=== PATIENT | male | born 1945 | race African-American/Black ===

== ENCOUNTER 2019-12-30 07:10 | Inpatient (IN) | payer MEDICARE, OTHER ==
[~2019-12-30] VITALS: Ht 185.4 cm; Wt 117.4 kg
[2019-12-30] MEDS ORDERED: SODIUM CHLORIDE 0.9% 1,000 ML ONE (07:36)
[2019-12-30] MEDS ORDERED: SODIUM CHLORIDE 0.9% 1,000 ML IV ONE (07:45)
[2019-12-30 07:56] LABS: BASOPHILS % (AUTO) 0.6 % (0.0-2.0); EOSINOPHILS % (AUTO) 3.2 % (1.0-6.0); HEMATOCRIT 33.3 % (41-53); LYMPHOCYTES # (AUTO) 2.2 K/uL (1.0-4.8); MEAN CORPUSCULAR HEMOGLOBIN 28.9 pg (26.0-34.0); MEAN CORPUSCULAR HGB CONC 32.9 G/dL (31.0-37.0); MEAN CORPUSCULAR VOLUME 88 fL (80-100); MONOCYTES # (AUTO) 0.6 K/uL (0.1-1.0); MONOCYTES % (AUTO) 8.3 % (2.0-9.0); NEUTROPHILS # (AUTO) 4.5 K/uL (1.8-7.7); NEUTROPHILS % (AUTO) 58.9 % (40.0-70.0); PLATELET COUNT (AUTO) 149 K/uL (150-450); RED BLOOD CELL COUNT(AUTO) 3.79 MIL/uL (4.50-5.90); RED CELL DISTRIBUTION WIDTH 14.7 % (11.5-14.5)
[2019-12-30] MEDS ORDERED: IOHEXOL 300 MG/ML 150 ML VIAL ONE (08:09)
[2019-12-30] MEDS ORDERED: HEPARIN SODIUM,PORCINE 1,000 UNITS/ML 10 ML VIAL ONE (08:09)
[2019-12-30] MEDS ORDERED: LIDOCAINE/PF 1% 30 ML VIAL ONE (08:10)
[2019-12-30] MEDS ORDERED: VERAPAMIL HCL 2.5 MG/ML 2 ML VIAL ONE (08:10)
[2019-12-30] MEDS ORDERED: SODIUM BICARBONATE 50 MEQ/50 ML VIAL ONE (08:11)
[2019-12-30 08:13] LABS: CALCIUM, TOTAL 8.4 mg/dL (8.8-10.5); CREATININE 3.33 mg/dL (0.60-1.30); POTASSIUM 4.3 mmol/L (3.5-5.1)
[2019-12-30] MEDS ORDERED: HEPARIN SODIUM 1000 UNITS/NS 1,000 ML ONE (08:13)
[2019-12-30 08:15] LABS: INR 1.1 (0.9-1.1); PROTHROMBIN TIME 10.8 SEC (9.4-11.6)
[2019-12-30 08:21] LABS: ALBUMIN 3.5 g/dL (3.4-5.0); BILIRUBIN,TOTAL 0.2 mg/dL (0.1-1.0); TOTAL PROTEIN, SERUM 7.3 g/dL (6.4-8.2)
[2019-12-30] MEDS ORDERED: NITROGLYCERIN 50 MG/D5% WATER 250 ML ONE (09:36)
[2019-12-30] MEDS ORDERED: FentaNYL CITRATE-PF 100 MCG/2 ML VIAL ONE (09:59)
[2019-12-30] MEDS ORDERED: MIDAZOLAM HCL 2 MG/2 ML VIAL ONE (10:00)
[2019-12-30 10:05] VITALS: BP 167/62
[2019-12-30] MEDS ORDERED: ASPIRIN 325 MG TABLET ONE (10:57)
[2019-12-30] MEDS ORDERED: TICAGRELOR 90 MG TABLET ONE (10:57)
[2019-12-30] MEDS ORDERED: LABETALOL HCL 5 MG/ML 20 ML VIAL IVP ONE ×2 (11:08→11:15)
[2019-12-30] MEDS ORDERED: LIDOCAINE 1% 30 ML/SOD BICARB 8.4% 4 ML SQ ONE ×2 (11:15→11:30)
[2019-12-30] MEDS ORDERED: HEPARIN SODIUM,PORCINE 1,000 UNITS/ML 10 ML VIAL IVP ONE ×2 (11:15→12:00)
[2019-12-30] MEDS ORDERED: VERAPAMIL HCL 2.5 MG/ML 2 ML VIAL IARTER ONE (11:15)
[2019-12-30] MEDS ORDERED: NITROGLYCERIN/D5W 50 MG/250 ML IV BOTTLE IARTER ONE (11:15)
[2019-12-30] MEDS ORDERED: FentaNYL CITRATE-PF 100 MCG/2 ML VIAL IVP ONE (11:15)
[2019-12-30] MEDS ORDERED: MIDAZOLAM HCL 2 MG/2 ML VIAL IVP ONE (11:15)
[2019-12-30] MEDS ORDERED: SODIUM CHLORIDE 0.9% 500 ML IV ONE (11:20)
[2019-12-30] MEDS ORDERED: HEPARIN SODIUM 1000 UNITS/NS 1,000 ML IARTER ONE (11:20)
[2019-12-30] MEDS ORDERED: IOHEXOL 300 MG/ML 150 ML VIAL ICOR ONE (11:30)
[2019-12-30] MEDS ORDERED: BUMETANIDE 0.25 MG/ML 4 ML VIAL ONE (11:34)
[2019-12-30] MEDS ORDERED: BUMETANIDE 0.25 MG/ML 4 ML VIAL IVP ONE (11:45)
[2019-12-30] MEDS ORDERED: TICAGRELOR 90 MG TABLET PO ONE (11:45)
[2019-12-30] MEDS ORDERED: ASPIRIN 325 MG TABLET PO ONE (11:45)
[2019-12-30 11:55] VITALS: BP 184/64
[2019-12-30] MEDS ORDERED: CHOLECALCIFEROL (VIT D3) 5,000 [125 MCG] UNITS CAPSULE PO ONE (12:00)
[2019-12-30] MEDS ORDERED: DEXTROSE 50%-WATER 25 GM/50 ML SYRINGE IVP PRN (12:00)
[2019-12-30] MEDS ORDERED: MetFORMIN HCL 500 MG TABLET PO SCH (17:30)
[2019-12-30 17:47] VITALS: BP 150/68
[2019-12-30 18:13] LABS: GLUCOMETER DEV NAME(LOC) 5S.1; GLUCOSE,POINT OF CARE 195 MG/DL (70-110)
[2019-12-30] MEDS: INSULIN LISPRO 100 UNITS/ML SQ PRN ×2 (18:38→22:24)
[2019-12-30 20:45] VITALS: BP 162/76
[2019-12-30] MEDS: ISOSORBIDE MONONITRATE 30 MG ER TABLET PO SCH (21:00)
[2019-12-30] MEDS: TICAGRELOR 90 MG TABLET PO SCH (21:00)
[2019-12-30] MEDS: ATORVASTATIN CALCIUM 40 MG TABLET PO SCH (21:00)
[2019-12-30] MEDS: BUMETANIDE 0.25 MG/ML 4 ML VIAL IVP SCH (21:00)
[2019-12-30] MEDS: CARVEDILOL 12.5 MG TABLET PO SCH (21:00)
[2019-12-30] MEDS: HYDROCODONE/ACETAMINOPHEN 5-325 MG TABLET PO PRN (22:22)
[2019-12-31 00:01] VITALS: BP 135/64
[2019-12-31 02:30] LABS: GLUCOMETER DEV NAME(LOC) 5S.1; GLUCOSE,POINT OF CARE 231 MG/DL (70-110)
[2019-12-31 05:45] VITALS: BP 151/60
[2019-12-31] MEDS ORDERED: GlipiZIDE 5 MG TABLET PO SCH (06:30)
[2019-12-31 07:31] LABS: BASOPHILS % (AUTO) 0.3 % (0.0-2.0); HEMATOCRIT 31.1 % (41-53); HEMOGLOBIN 10.2 g/dL (13.5-17.5); LYMPHOCYTES # (AUTO) 1.2 K/uL (1.0-4.8); MEAN CORPUSCULAR HEMOGLOBIN 28.6 pg (26.0-34.0); MEAN CORPUSCULAR HGB CONC 32.7 G/dL (31.0-37.0); MEAN CORPUSCULAR VOLUME 88 fL (80-100); MONOCYTES # (AUTO) 0.7 K/uL (0.1-1.0); MONOCYTES % (AUTO) 7.7 % (2.0-9.0); NEUTROPHILS # (AUTO) 6.6 K/uL (1.8-7.7); PLATELET COUNT (AUTO) 139 K/uL (150-450); RED BLOOD CELL COUNT(AUTO) 3.56 MIL/uL (4.50-5.90); RED CELL DISTRIBUTION WIDTH 14.6 % (11.5-14.5)
[2019-12-31 07:41] LABS: ANION GAP 8 mmol/L (8-16); CALCIUM, TOTAL 8.7 mg/dL (8.8-10.5); CARBON DIOXIDE 24 mmol/L (22-29); CHLORIDE 106 mmol/L (98-107); CREATININE 3.34 mg/dL (0.60-1.30); GLOMERULAR FILTR. RATE CALC 22 mL/min (>60); GLUCOSE,RANDOM 145 mg/dL (70-110); POTASSIUM 5.3 mmol/L (3.5-5.1); SODIUM SERUM 138 mmol/L (136-145); UREA NITROGEN, BLOOD 38 mg/dL (7-18)
[2019-12-31] MEDS ORDERED: ASPIRIN 81 MG CHEWABLE TABLET PO SCH (08:00)
[2019-12-31] MEDS ORDERED: VALSARTAN 160 MG TABLET PO SCH (09:00)
[2019-12-31 09:01] VITALS: BP 133/66
[2019-12-31] MEDS: TICAGRELOR 90 MG TABLET PO SCH ×2 (09:47→20:15)
[2019-12-31] MEDS: CARVEDILOL 12.5 MG TABLET PO SCH ×2 (09:58→20:22)
[2019-12-31] MEDS: BUMETANIDE 0.25 MG/ML 4 ML VIAL IVP SCH ×2 (09:59→20:22)
[2019-12-31 10:33] LABS: C-REACTIVE PROTEIN QUANT < 0.05 mg/dL (0.00-0.30)
[2019-12-31 10:42] LABS: URIC ACID 9.1 mg/dL (2.6-7.2)
[2019-12-31 11:19] LABS: ERYTHROCYTE SEDIMENTATION RATE 50 MM/HR (0-15)
[2019-12-31] MEDS: HYDROCODONE/ACETAMINOPHEN 5-325 MG TABLET PO PRN (12:01)
[2019-12-31 12:45] VITALS: BP 152/70
[2019-12-31] MEDS ORDERED: AmLODIPine BESYLATE 10 MG TABLET PO SCH (13:00)
[2019-12-31] MEDS: INSULIN LISPRO 100 UNITS/ML SQ PRN ×2 (13:01→17:50)
[2019-12-31 15:36] VITALS: BP 167/85
[2019-12-31] MEDS ORDERED: ASPI-728 PO (18:00)
[2019-12-31] MEDS ORDERED: AMLO10TA7 PO (18:01)
[2019-12-31] MEDS ORDERED: ATOR40TA28 PO (18:01)
[2019-12-31] MEDS ORDERED: CARV12 PO (18:02)
[2019-12-31] MEDS ORDERED: GLIP5 PO (18:03)
[2019-12-31] MEDS ORDERED: GLIP10 PO (18:03)
[2019-12-31] MEDS ORDERED: ISOS30TA6 PO (18:04)
[2019-12-31] MEDS ORDERED: TICA90TA PO (18:04)
[2019-12-31] MEDS ORDERED: VALS160T2 PO (18:05)
[2019-12-31] MEDS: ATORVASTATIN CALCIUM 40 MG TABLET PO SCH (20:22)
[2019-12-31] MEDS: ISOSORBIDE MONONITRATE 30 MG ER TABLET PO SCH (20:22)
[2019-12-31] MEDS ORDERED: GlipiZIDE 10 MG TABLET PO SCH (21:00)
[2020-01-01 06:19] LABS: GLUCOMETER DEV NAME(LOC) 5S.2A; GLUCOSE,POINT OF CARE 164 MG/DL (70-110)
[2020-01-01 07:41] LABS: GLUCOMETER DEV NAME(LOC) 5S.1; GLUCOSE,POINT OF CARE 121 MG/DL (70-110)
[2020-01-01 07:41] LABS: GLUCOMETER DEV NAME(LOC) 5S.1; GLUCOSE,POINT OF CARE 211 MG/DL (70-110)
[2020-01-01] MEDS ORDERED: MetFORMIN HCL 500 MG TABLET PO SCH (18:00)
== END 2019-12-31 20:15 | disposition home or self-care (01) | DRG 286 ==
LOC: CATHLAB 07:10 → 5S 07:11 → EDBD 09:00
PROVIDERS: ADMIT Internal Medicine Cardiovascular Disease; ATTEND Internal Medicine Cardiovascular Disease
PROC: 4A023N7 Measurement of Cardiac Sampling and Pressure, Left Heart, Percutaneous Approach (ICD-10-PCS; principal; 2019-12-30)
PROC: B2111ZZ Fluoroscopy of Multiple Coronary Arteries using Low Osmolar Contrast (ICD-10-PCS; 2019-12-30)
PROC: B41F1ZZ Fluoroscopy of Right Lower Extremity Arteries using Low Osmolar Contrast (ICD-10-PCS; 2019-12-30)
DX: I25.110 Atherosclerotic heart disease of native coronary artery with unstable angina pectoris (principal); I50.23 Acute on chronic systolic (congestive) heart failure; I13.0 Hypertensive heart and chronic kidney disease with heart failure and stage 1 through stage 4 chronic kidney disease, or unspecified chronic kidney disease; N18.4 Chronic kidney disease, stage 4 (severe); I16.0 Hypertensive urgency; E78.5 Hyperlipidemia, unspecified; D64.9 Anemia, unspecified; E11.22 Type 2 diabetes mellitus with diabetic chronic kidney disease; N40.0 Benign prostatic hyperplasia without lower urinary tract symptoms; E55.9 Vitamin D deficiency, unspecified; E87.5 Hyperkalemia; M79.81 Nontraumatic hematoma of soft tissue; J44.9 Chronic obstructive pulmonary disease, unspecified; Z79.4 Long term (current) use of insulin; Z82.49 Family history of ischemic heart disease and other diseases of the circulatory system; Z87.891 Personal history of nicotine dependence; Z79.899 Other long term (current) drug therapy
CPT/HCPCS: 84550; 85651; 86140; 93005; G0378; J1644; J2250; J3010; J3490; J7030; Q9967